=== PATIENT | male | born 1960 | race Caucasian/White ===

== ENCOUNTER 2020-09-18 15:46 | Inpatient (IN) ==
--- NOTE | 2020-09-18 16:11 | Emergency Department Note ---
History of Present Illness General Chief complaint: Facial Injury/Pain Stated complaint: LUMP ON FACE Time Seen by Provider: 09/18/20 16:00 History of Present Illness Maximum Pain Intensity: 6 This is a 60-year-old male that presents to the emergency department via private vehicle with complaints "lump on face". The patient notes that about 1 month ago he felt small pimples develop in the left nostril region. He put some drawing salve on these and they seem to go away. He then felt as though these small pimples seemed to progress to the hair follicles within his left upper mustache region and that seemed to worsen. He was seen several times for this thus far and placed on antibiotics. He was placed on Keflex and Bactrim this past Friday. He notes that an I&D was attempted at [place] emergency department and he notes that it continues to grow in size and drain this yel lowish type drainage. He denies any fevers or chills. He notes it is quite painful and currently rates the pain is a 6/10 of which she has mitigated with 800 mg ibuprofen, and has had 3 of these today. He denies any chewing tobacco history or smoking. He has never had this before. Home Medications Home Medications Medication Instructions Recorded Confirmed Type Bactrim DS 1 tab PO BID 09/18/20 09/18/20 History aspirin [Aspir-81] 81 mg PO DAILY 09/18/20 09/18/20 History cephalexin [Keflex] 500 mg PO QID 09/18/20 09/18/20 History lactobacillus combination no.4 3,000 mmu cells PO DAILY 09/18/20 09/18/20 History [Probiotic] Allergies Allergy/AdvReac Type Severity Reaction Status Date / Time atorvastatin [From Lipitor] AdvReac Unknown Verified 09/18/20 20:56 Past Med/Surg History Medical History No pertinent past medical history Surgical History History of carpal tunnel surgery Social History Smoking Status: Former smoker Second Hand Exposure: No; Do You Dip or Chew Tobacco: No; Hx Alcohol Use: No Hx Substance Use: No Preferred Language: German Communication Ability: Effective 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 Beliefs That Will Affect Care: None Current Living Situation: Spouse Other Information That Helps Us Care for You: No Feels Safe at Home: Yes Safety Concerns: Feels Safe At This Time Assistive Devices: None Review of Systems A total of 10 systems reviewed and were otherwise negative Physical Exam Vital Signs Vital Signs - 24 hr 09/18/20 15:56 09/18/20 17:58 09/18/20 19:00 Temperature 36.9 C Temperature Source Oral Pulse Rate 80 Pulse Rate [Right Finger] 75 66 Pulse Rhythm Regular Pulse Rhythm [Right Finger] Regular Pulse Strength Normal Pulse Strength [Right Finger] Normal Respiratory Rate 20 18 20 Respiratory Effort / Characteristics Non-Labored Non-Labored Spontaneous Non-Labored Spontaneous Respiratory Depth Normal Normal Normal Respiratory Pattern Regular Regular Blood Pressure 131/91 Blood Pressure [Right Arm] 140/81 116/65 Blood Pressure Mean 104 Blood Pressure Mean [Right Arm] 100 82 Pulse Oximetry 98 98 96 Oxygen Delivery Method Room Air Room Air Room Air Sepsis Recent Fever Within 48 Hours No Sepsis New/Unexplained Change in Mental Status No Sepsis Action Taken by Nursing No Action Required 09/18/20 20:50 Temperature Temperature Source Pulse Rate Pulse Rate [Right Finger] 67 Pulse Rhythm Pulse Rhythm [Right Finger] Pulse Strength Pulse Strength [Right Finger] Respiratory Rate 18 Respiratory Effort / Characteristics Respiratory Depth Respiratory Pattern Blood Pressure Blood Pressure [Right Arm] 122/70 Blood Pressure Mean Blood Pressure Mean [Right Arm] 87 Pulse Oximetry 98 Oxygen Delivery Method Sepsis Recent Fever Within 48 Hours Sepsis New/Unexplained Change in Mental Status Sepsis Action Taken by Nursing VITAL SIGNS - Vital signs and nursing notes were reviewed. Stable and afebrile. GENERAL -60-year-old male appearing his stated age who is in no acute distress. Communicates well with provider and answers questions appropriately. SKIN -there is a large, 3 cm in diameter, 3 cm protruding sphere in nature masslike structure projecting from the upper lip, left side between the left nostril and the left upper lip. This is within the patient's facial hair on the mustache. There is mild yellowish drainage. There is tenderness to palpation. HEAD - NC/AT. EYES - PERRL with EOMI bilaterally. Sclera anicteric. Palpebral conjunctiva pink and moist with no injection noted. EARS - No deformities of external structures noted on gross examination bilaterally. No pain elicited with palpation of the tragus bilaterally. External auditory canals without discharge or otorrhea. Tympanic membranes pearly elizabeth without retraction or bulging. No fluid or purulent material visualized behind the TM. Handle of malleus, umbo, cone of light, pars tensa/flaccid all easily visualized. NOSE - Midline and without cyanosis. No epistaxis or purulent drainage noted. Septum midline without deviation or septal hematoma noted. Skin as above. MOUTH/OROPHARYNX - Without perioral cyanosis. Buccal mucosa pink and moist and without leukoplakia. Tongue midline with equal elevation of palate bilaterally. No tonsillar hypertrophy, erythema, or exudates noted. Good dentition noted. NECK - Neck with FROM. Supple to palpation. Mild left-sided lymphadenopathy noted. No nuchal rigidity. LUNGS - Chest wall symmetric without accessory muscle use, intercostals retractions, or central cyanosis. Normal vesicular breath sounds CTA B/L. No wheezes, rales, or rhonchi appreciated. CARDIAC - RRR with S1/S2. No murmur, rubs, or gallops appreciated. EXTREMITIES - +5/5 strength noted in UE/LE bilaterally. NEUROLOGIC - Cranial nerves II through XII grossly intact. PSYCH - A&O, and cooperates fully with examiner. Pt is very pleasant and interacts well with examiner. Course Administered Medications Dextrose/Lactated Ringer's (D5w And Lactated Ringers) 1,000 mls @ 50 mls/hr IV .Q20H MAGED Stop: 10/19/20 00:00 Last Admin: 09/18/20 23:52 Dose: 50 mls/hr Documented by: [id number] Daptomycin 250 mg/ Syringe 5 mls @ 2.5 mls/min IV Q24H MAGED; Protocol Stop: 09/25/20 22:59 Last Admin: 09/18/20 23:52 Dose: 2.5 mls/min Documented by: [id number] Lactobacillus Acidophilus (Lactobacillus Acidophilus 1 Gm Pack) 1 gm PO TIDM MAGED Stop: 10/18/20 20:59 Last Admin: 09/18/20 22:31 Dose: 1 gm Documented by: [id number] Discontinued Medications Acetaminophen (Acetaminophen 500 Mg Tab) 1,000 mg PO NOW STA Stop: 09/18/20 21:09 Last Admin: 09/18/20 21:23 Dose: 1,000 mg Documented by: [id number] Vancomycin HCl 1,500 mg/ (Sodium Chloride) 530 mls @ 200 mls/hr IV NOW ONE Stop: 09/18/20 22:42 Last Infusion: 09/18/20 23:51 Dose: 0 mls/hr Documented by: [id number] Admin: 09/18/20 20:49 Dose: 200 mls/hr Documented by: [id number] Ciprofloxacin (Cipro / D5w) 400 mg in 200 mls @ 100 mls/hr IV NOW STA; Protocol Stop: 09/18/20 22:59 Last Admin: 09/18/20 23:52 Dose: 100 mls/hr Documented by: [id number] Ioversol (Optiray 320 125ml) 93 ml IV ONCE ONE Stop: 09/18/20 17:44 Last Admin: 09/18/20 17:44 Dose: 1 ml Documented by: [id number] Medical Decision Making Laboratory Data Result diagrams: 09/18/20 16:19 09/18/20 16:19 Lab Results 09/18/20 09/18/20 Range/Units 16:19 16:19 WBC 9.91 (4.8-10.8) K/uL RBC 5.23 (4.7-6.1) M/uL Hgb 15.2 (14.0-18.0) g/dL Hct 43.2 (42-52) % MCV 82.6 (80-100) fL MCH 29.1 (25-34) pg MCHC 35.2 (32-36) g/dL Plt Count 211 (130-400) K/uL Immature Gran % (Auto) 0.2 % Neut % (Auto) 62.0 % Lymph % (Auto) 20.3 % [place] % (Auto) 14.3 % Eos % (Auto) 2.8 % Baso % (Auto) 0.4 % Neut # (Auto) 6.14 (1.4-6.5) K/uL Lymph # (Auto) 2.01 (1.2-3.4) K/uL [place] # (Auto) 1.42 H (0.11-0.59) K/uL Eos # (Auto) 0.28 (0-0.5) K/uL Baso # (Auto) 0.04 (0-0.2) K/uL Immature Gran # (Auto) 0.02 (0.00-0.02) K/uL Sodium 137 (136-145) mmol/L Potassium 4.2 (3.5-5.1) mmol/L Chloride 107 (98-107) mmol/L Carbon Dioxide 24 (21-32) mmol/L Anion Gap 6.0 (3-11) BUN 21 H (7-18) mg/dl Creatinine 1.36 (0.6-1.4) mg/dl Est Cr Clr Drug Dosing Not Reportable Est GFR ( Amer) 65.1 Est GFR (Non-Af Amer) 56.2 BUN/Creatinine Ratio 15.3 (10-20) Glucose 85 (70-99) mg/dl Calcium 9.2 (8.5-10.1) mg/dl Total Bilirubin 1.0 (0.2-1) mg/dl AST 18 (15-37) U/L ALT 27 (12-78) U/L Alkaline Phosphatase 113 (45-117) U/L Total Protein 7.9 (6.4-8.2) gm/dl Albumin 3.9 (3.4-5.0) gm/dl Globulin 4.0 (2.5-4.0) gm/dl Albumin/Globulin Ratio 1.0 (0.9-2) Imaging Data Radiologist's Impression: CT SCAN OF THE FACIAL BONES WITH IV CONTRAST CLINICAL HISTORY: Upper lip swelling. Pain. COMPARISON STUDY: No priors. TECHNIQUE: High-resolution CT scan of the facial bones is performed following the IV administration of 94 cc of Optiray 320. Images are reviewed in the axial, sagittal, and coronal planes. IV contrast was administered without complication. A dose lowering technique was utilized adhering to the principles of ALARA. CT DOSE: 233.09 mGy.cm FINDINGS: The skeletal structures are well mineralized. There is no evidence of facial bone fracture. The bony orbits are intact and the orbital contents are within normal limits. The zygomatic arches, nasal bones, and pterygoid plates are preserved. The maxilla and mandible are intact. There are no layering blood products within the paranasal sinuses. Trace mucosal thickening is seen in the left maxillary antrum, the right frontal sinus, and the left sphenoid sinus. Mild to moderate mucosal thickening seen within the ethmoid, right sphenoid, and left frontal sinuses. The mastoid air cells are well pneumatized. The visualized calvarium and upper cervical spine are maintained. Partially imaged brain parenchyma is within normal limits. Evaluation of the oral cavity is degraded by streak artifact from dental amalgam. No significant periodontal disease is identified. There is significant soft tissue edema, hyperemia, and phlegmonous change are identified in the left upper lip. No organized fluid collection is clearly seen to indicate abscess. IMPRESSION: 1. Soft tissue edema, hyperemia, and phlegmonous change are identified in the soft tissues of the left upper lip. Correlate clinically for evidence of infection. 2. No organized/drainable fluid collection is identified to indicate abscess. This is suboptimally assessed due to significant streak artifact from dental amalgam. 3. No facial bone abnormality is seen. ACT 112: Negative or not required by law. Electronically signed by: Wan Tapia M.D. 09/18/2020 5:59 PM MDM Narrative Patient was seen and evaluated as above in room A10. Review was performed of nursing notes and vital signs. After obtaining a thorough history and physical examination the above work up was performed. Patient presents to us today with edema to the left upper lip region between the upper lip and nose. This is just to the left lateral region of the philtrum. Vital signs stable. He is afebrile. The swelling is quite impressive. Options of care were discussed with the patient. Was felt that a CT scan of the face with contrast would be reasonable to rule out a deeper abscess not seen clinically. There is no leukocytosis or anemia. No emergent metabolic disturbance. Patient has been on antibiotics for about a week now and they were changed to Keflex/Bactrim as of this past Friday. He has been taking them as prescribed. He notes worsening s ymptoms since that time. CT scan of the face as above. No abscess. There is drainage on my examination. I did obtain a sample from this drainage to culture. I did order empiric IV vancomycin. I did discuss the presentation with the on-call plastic surgeon, Dr. Hill. We discussed the case. With the patient not improving with p.o./oral outpatient antibiotics we discussed options of care. We discussed inpatient versus outpatient management. We agree at this time there does not appear to be any surgical emergent process. We discussed importance of antibiotics covering potential MRSA given presentation. Patient clinically looks well but does appear to be in pain and was medicated with analgesics and I discussed options with the patient and he notes that he is amenable to inpatient management which I believe is reasonable. The patient did add to the history that around the same time as developing the small pimples he did feel a small piece of hot metal fly towards the left nostril region while welding. This could have been the inciting event. I am not able to appreciate any foreign body on my examination. I do believe though with the patient not improving and arguably worsening in the outpatient setting despite p.o. antibiotics, that further evaluation and management in the inpatient setting is warranted. I believe by choosing the route of inpatient management tonight this could save the patient from potentially worsening infection given its location on the face believe this is in the patient's best interest to stay. I discussed presentation and findings with the on-call hospitalist, Dr. Bales. He came to evaluate the patient. Please refer to further documentation regarding his stay. GCS: 15 In the evaluation and treatment of this patient the following differential diagnoses were entertained: Cellulitis, abscess, malignancy, Nelson's angina, foreign body, among others. Impression & Plan Cellulitis of face, Swelling of upper lip, Failure of outpatient treatment Discharge Plan Visit Data Chief Complaint: Facial Injury/Pain Stated Complaint: LUMP ON FACE ED Provider: Nguyen Gregory ED Midlevel Provider: Guido Salcedo Discharge Problem: Cellulitis of face, Swelling of upper lip, Failure of outpatient treatment Patient Disposition: Admitted As Inpatient Discharge Instructions Interventions: ED Discharge Assessment Last Done: 09/18/20 21:30
[2020-09-18 16:54] LABS: Chloride 107 mmol/L (98-107); Potassium 4.2 mmol/L (3.5-5.1); Sodium 137 mmol/L (136-145)
[2020-09-18 17:25] LABS: Basophils # (auto) 0.04 K/uL (0-0.2); Basophils % (auto) 0.4 %; Eosinophils # (auto) 0.28 K/uL (0-0.5); Eosinophils % (auto) 2.8 %; Hematocrit (blood only) 43.2 % (42-52); Hemoglobin 15.2 g/dL (14.0-18.0); Immature Granulocytes # (auto) 0.02 K/uL (0.00-0.02); Immature Granulocytes % (auto) 0.2 %; Lymphocytes # (auto) 2.01 K/uL (1.2-3.4); Lymphocytes % (auto) 20.3 %; Mean Corpuscular Hemoglobin 29.1 pg (25-34); Mean Corpuscular Hgb Conc 35.2 g/dL (32-36); Mean Corpuscular Volume 82.6 fL (80-100); Monocytes # (auto) 1.42 K/uL (0.11-0.59); Monocytes % (auto) 14.3 %; Neutrophils # (auto) 6.14 K/uL (1.4-6.5); Platelet Count 211 K/uL (130-400); Red Blood Count 5.23 M/uL (4.7-6.1); White Blood Count 9.91 K/uL (4.8-10.8)
[2020-09-18 17:40] LABS: Albumin Level 3.9 gm/dl (3.4-5.0); Alkaline Phosphatase 113 U/L (45-117); BUN Creatinine Ratio 15.3 (10-20); Blood Urea Nitrogen 21 mg/dl (7-18); Calcium 9.2 mg/dl (8.5-10.1); Carbon Dioxide 24 mmol/L (21-32); Est GFR (African American) 65.1; Est GFR (Non-African American) 56.2; Glucose 85 mg/dl (70-99)
[2020-09-18 17:43] LABS: Alanine Aminotransferase 27 U/L (12-78); Aspartate Aminotransferase 18 U/L (15-37); Total Protein 7.9 gm/dl (6.4-8.2)
[2020-09-18] MEDS ORDERED: OPTIRAY 320 125ml IV ONE (17:43)
--- NOTE | 2020-09-18 18:01 | CT Scan Report ---
CT SCAN OF THE FACIAL BONES WITH IV CONTRAST CLINICAL HISTORY: Upper lip swelling. Pain. COMPARISON STUDY: No priors. TECHNIQUE: High-resolution CT scan of the facial bones is performed following the IV administration of 94 cc of Optiray 320. Images are reviewed in the axial, sagittal, and coronal planes. IV contrast was administered without complication. A dose lowering technique was utilized adhering to the princi ples of ALA. CT DOSE: 233.09 mGy.cm FINDINGS: The skeletal structures are well mineralized. There is no evidence of facial bone fracture. The bony orbits are intact and the orbital contents are within normal limits. The zygomatic arches, nasal bones, and pterygoid plates are preserved. The maxilla and mandible are intact. There are no la yering blood products within the paranasal sinuses. Trace mucosal thickening is seen in the left maxi llary antrum, the right frontal sinus, and the left sphenoid sinus. Mild to moderate mucosal thickeni ng seen within the ethmoid, right sphenoid, and left frontal sinuses. The mastoid air cells are well pneumatized. The visualized calvarium and upper cervical spine are maintained. Partially imaged brain parenchyma is within normal limits. Evaluation of the oral cavity is degraded by streak artifact fro m dental amalgam. No significant periodontal disease is identified. There is significant soft tissue edema, hyperemia, and phlegmonous change are identified in the left upper lip. No organized fluid col lection is clearly seen to indicate abscess. IMPRESSION: 1. Soft tissue edema, hyperemia, and phlegmonous change are identified in the soft tissues of the lef t upper lip. Correlate clinically for evidence of infection. 2. No organized/drainable fluid collection is identified to indicate abscess. This is suboptimally as sessed due to significant streak artifact from dental amalgam. 3. No facial bone abnormality is seen. ACT 112: Negative or not required by law. Electronically signed by: Wan Tapia M.D. 09/18/2020 5:59 PM
[2020-09-18] MEDS ORDERED: VANCOMYCIN CONSULT ACTIVE PRN (20:04)
[2020-09-18] MEDS ORDERED: VANCOMYCIN HCL 1,500 MG in SODIUM CHLORIDE 0.9% 500 ML IV ONE (20:04)
--- NOTE | 2020-09-18 20:54 | History & Physical Report ---
Date of Service September 18, 2020 Assessment & Plan (1) Facial abscess: Status post incision and drainage at [facility] ER last week. Failed outpatient treatment No sepsis hyperlipidemia/statin intolerance past tobacco abuse GMF Daptomycin, Ciprofloxacin Plastic surgery consultation Re: Left nasolabial abscess/cellulitis (ER provider already in touch with Dr. Hill.) We will keep patient n.p.o. after midnight in anticipation of procedural intervention following plastic surgery evaluation. DVT prophylaxis with Lovenox subcu Full code Text document was generated using [employer] voice recognition software. It may contain grammatical or spelling errors. Kindly contact undersigned for clarification of any documentation item in question. History of Present Illness Chief Complaint: Worsening facial swelling Primary Care Provider: Anam Fuentes MD History obtained from patient, family, and records. Medical history significant for hyperlipidemia, statin intolerance, Gilbert syndrome as per records, past tobacco abuse. 1 month history of swelling on the left nasolabial area. Started with an ulcerated wound after metallic fragments accidentally hit his face while using a blow torch to get metal hinges of a door at patient's home. Patient admits to picking on wound scabs which led to development of a bump on the left upper lip. Intermittent purulent yellow drainage noted without fever, chills, headache. Patient seen at [facility] ER last week. No metallic foreign body on x-ray. Left nasolabial abscess/folliculitis drained at the ER. Tdap booster given at the ER. Patient prescribed Clindamycin course. Some improvement following ER visit as per patient. Clindamycin switched to Keflex and Bactrim Rx by PCPs office on follow-up visit after 3 days. Subsequent worsening of left nasal labial swelling in the last few days. Patient directed to [facility] ER by PCPs office. IV vancomycin given at the emergency room. Medical History as above Surgical History : Vasectomy, carpal tunnel surgery Family History : Rheumatic heart disease, prostate cancer, malignant melanoma, heart disease Personal/Social history : Past tobacco abuse, no EtOH intake, [employer] Allergies Allergy/AdvReac Type Severity Reaction Status Date / Time atorvastatin [From Lipitor] AdvReac Unknown Verified 09/18/20 20:56 Home Medications Home Medications Medication Instructions Recorded Confirmed Type Bactrim DS 1 tab PO BID 09/18/20 09/18/20 History aspirin [Aspir-81] 81 mg PO DAILY 09/18/20 09/18/20 History cephalexin [Keflex] 500 mg PO QID 09/18/20 09/18/20 History lactobacillus combination no.4 3,000 mmu cells PO DAILY 09/18/20 09/18/20 Histor y [Probiotic] Past Med/Surg History Medical History No pertinent past medical history Surgical History History of carpal tunnel surgery Social History Smoking Status: Former smoker Second Hand Exposure: No; Do You Dip or Chew Tobacco: No; Hx Alcohol Use: No Hx Substance Use: No Preferred Language: Pashto Communication Ability: Effective Vaccine Key Customer Leader Required: No Beliefs That Will Affect Care: None Current Living Situation: Spouse Other Information That Helps Us Care for You: No Feels Safe at Home: Yes Safety Concerns: Feels Safe At This Time Assistive Devices: None Review of Systems Review of Systems: As per HPI, all 10 systems reviewed, all other ROS negative Physical Exam Physical Exam: GENERAL: Comfortable, pleasant, obese, no respiratory distress SKIN: Normal color, warm HEENT: Alopecia, crusty mass over left nasolabial fold with mild tenderness, pink palpebral conjunctivae, no ptosis, dry buccal mucosa NECK : Supple, no tenderness CHEST : CTA, no tenderness HEART : RRR, no obvious murmurs ABDOMEN: Some distention, nontender EXTREMITIES : No LE swelling/tenderness, no other conspicuous deformities noted NEUROLOGIC : Coherent, no facial asymmetry, no other gross focality Results & Data Results & Data ([facility]) Vital Signs (Past 12 Hours) Vital Signs Temp Pulse Pulse Resp BP BP Pulse Ox 09/18/20 20:50 67 18 122/70 98 09/18/20 19:00 66 20 116/65 96 09/18/20 17:58 75 18 140/81 98 09/18/20 15:56 36.9 C 80 20 131/91 98 Laboratory Results Laboratory Results WBC 9.91 K/uL (4.8-10.8) 09/18/20 16:19 RBC 5.23 M/uL (4.7-6.1) 09/18/20 16:19 Hgb 15.2 g/dL (14.0-18.0) 09/18/20 16:19 Hct 43.2 % (42-52) 09/18/20 16:19 MCV 82.6 fL (80-100) 09/18/20 16:19 MCH 29.1 pg (25-34) 09/18/20 16:19 MCHC 35.2 g/dL (32-36) 09/18/20 16:19 Plt Count 211 K/uL (130-400) 09/18/20 16:19 Immature Gran % (Auto) 0.2 % 09/18/20 16:19 Neut % (Auto) 62.0 % 09/18/20 16:19 Lymph % (Auto) 20.3 % 09/18/20 16:19 [place] % (Auto) 14.3 % 09/18/20 16:19 Eos % (Auto) 2.8 % 09/18/20 16:19 Baso % (Auto) 0.4 % 09/18/20 16:19 Neut # (Auto) 6.14 K/uL (1.4-6.5) 09/18/20 16:19 Lymph # (Auto) 2.01 K/uL (1.2-3.4) 09/18/20 16:19 [place] # (Auto) 1.42 K/uL (0.11-0.59) H 09/18/20 16:19 Eos # (Auto) 0.28 K/uL (0-0.5) 09/18/20 16:19 Baso # (Auto) 0.04 K/uL (0-0.2) 09/18/20 16:19 Immature Gran # (Auto) 0.02 K/uL (0.00-0.02) 09/18/20 16:19 Sodium 137 mmol/L (136-145) 09/18/20 16:19 Potassium 4.2 mmol/L (3.5-5.1) 09/18/20 16:19 Chloride 107 mmol/L (98-107) 09/18/20 16:19 Carbon Dioxide 24 mmol/L (21-32) 09/18/20 16:19 Anion Gap 6.0 (3-11) 09/18/20 16:19 BUN 21 mg/dl (7-18) H 09/18/20 16:19 Creatinine 1.36 mg/dl (0.6-1.4) 09/18/20 16:19 Est Cr Clr Drug Dosing Not Reportable 09/18/20 16:19 Est GFR ( Amer) 65.1 09/18/20 16:19 Est GFR (Non-Af Amer) 56.2 09/18/20 16:19 BUN/Creatinine Ratio 15.3 (10-20) 09/18/20 16:19 Glucose 85 mg/dl (70-99) 09/18/20 16:19 Calcium 9.2 mg/dl (8.5-10.1) 09/18/20 16:19 Total Bilirubin 1.0 mg/dl (0.2-1) 09/18/20 16:19 AST 18 U/L (15-37) 09/18/20 16:19 ALT 27 U/L (12-78) 09/18/20 16:19 Alkaline Phosphatase 113 U/L (45-117) 09/18/20 16:19 Total Protein 7.9 gm/dl (6.4-8.2) 09/18/20 16:19 Albumin 3.9 gm/dl (3.4-5.0) 09/18/20 16:19 Globulin 4.0 gm/dl (2.5-4.0) 09/18/20 16:19 Albumin/Globulin Ratio 1.0 (0.9-2) 09/18/20 16:[address]: 1. Soft tissue edema, hyperemia, and phlegmonous change are identified in the soft tissues of the left upper lip. Correlate clinically for evidence of infection. 2. No organized/drainable fluid collection is identified to indicate abscess. This is suboptimally assessed due to significant streak artifact from dental amalgam. 3. No facial bone abnormality is seen.
[2020-09-18] MEDS ORDERED: CIPROFLOXACIN / D5W 200 MG/100 ML BAG IV STA (20:59)
[2020-09-18] MEDS ORDERED: CIPROFLOXACIN / D5W 400 MG/200 ML BAG IV STA (21:00)
[2020-09-18] MEDS ORDERED: ACETAMINOPHEN 500 MG TAB PO STA (21:08)
[2020-09-18] MEDS ORDERED: LORazepam 0.5 MG/1 ML VIAL IV PRN (21:46)
[2020-09-18] MEDS ORDERED: IBUPROFEN 200 MG TAB PO PRN (21:46)
[2020-09-18] MEDS ORDERED: ACETAMINOPHEN 325 MG TAB PO PRN ×2 (21:46)
[2020-09-18] MEDS ORDERED: PROMETHAZINE HCL 12.5 MG in SODIUM CHLORIDE 0.9% 50 ML IV PRN (21:46)
[2020-09-18] MEDS ORDERED: PATIENT'S HEIGHT AND/OR WEIGHT NEEDED SCH (22:00)
[2020-09-18] MEDS ORDERED: CIPROFLOXACIN CONSULT ACTIVE PRN (22:13)
[2020-09-18] MEDS: LACTOBACILLUS ACIDOPHILUS 1 GM PACK PO SCH (22:31)
[2020-09-18] MEDS: D5W AND LACTATED RINGERS 1,000 ML IV SCH (23:52)
[2020-09-18] MEDS: DAPTOmycin 250 MG in SYRINGE 0 ML IV SCH (23:52)
[2020-09-19] MEDS: LACTOBACILLUS ACIDOPHILUS 1 GM PACK PO SCH ×3 (07:30→18:03)
[2020-09-19 07:59] LABS: Basophils # (auto) 0.05 K/uL (0-0.2); Basophils % (auto) 0.6 %; Eosinophils # (auto) 0.34 K/uL (0-0.5); Eosinophils % (auto) 3.8 %; Hematocrit (blood only) 42.3 % (42-52); Hemoglobin 14.6 g/dL (14.0-18.0); Immature Granulocytes # (auto) 0.02 K/uL (0.00-0.02); Immature Granulocytes % (auto) 0.2 %; Lymphocytes # (auto) 1.78 K/uL (1.2-3.4); Lymphocytes % (auto) 19.7 %; Mean Corpuscular Hemoglobin 29.1 pg (25-34); Mean Corpuscular Hgb Conc 34.5 g/dL (32-36); Mean Corpuscular Volume 84.4 fL (80-100); Mean Platelet Volume 11.3 fL (7.4-10.4); Monocytes # (auto) 1.15 K/uL (0.11-0.59); Monocytes % (auto) 12.7 %; Neutrophils # (auto) 5.71 K/uL (1.4-6.5); Platelet Count 198 K/uL (130-400); RDW Coefficient of Variation 12.7 % (11.5-14.5); Red Blood Count 5.01 M/uL (4.7-6.1); White Blood Count 9.05 K/uL (4.8-10.8)
[2020-09-19 08:31] LABS: BUN Creatinine Ratio 12.3 (10-20); Calcium 8.9 mg/dl (8.5-10.1); Creatinine Clr Calc Pharmacy 58.5 ml/min; Est GFR (Non-African American) 60.4; Potassium 4.3 mmol/L (3.5-5.1)
[2020-09-19] MEDS: ENOXAPARIN INJ 40 MG/0.4 ML SYR SQ SCH (08:40)
[2020-09-19] MEDS: CIPROFLOXACIN / D5W 400 MG/200 ML BAG IV SCH ×2 (08:40→21:00)
[2020-09-19] MEDS ORDERED: CONSULT PHARMACY SCH (09:00)
--- NOTE | 2020-09-19 14:21 | Surgery Consultation ---
Date of Consultation September 19, 2020 Assessment & Plan (1) Facial abscess: (2) Swelling of upper lip: (3) Cellulitis of face: IV abx per primary team. Needle aspiration performed at bedside- small amount of bloody drainage obtained. Wound culture was obtained. Gauze dressing was applied. Would recommend biopsy of mass. Plan for biopsy at bedside tomorrow with Dr. Hill. Plastic surgery will continue to follow closely. . History of Present Illness Reason for Consultation: Facial swelling Attending Physician: Modesto Parr MD History of Present Illness Jose L is a 60-year-old male who presented to [facility] ED for evaluation of lump above upper lip. He reports that this lump has been there for the last 2 weeks. He states that he was evaluated last week at [facility] where they attempted an incision and drainage. He states that he was discharged home on Keflex and Bactrim. He reports that the antibiotics did not help, in fact, the swelling became larger and more painful. He has been trying drawing salve to help with no success. He does note that about a month ago he had several small pimples near his left nostril, which is in the same vicinity of his current facial swelling. He states that he was treated with antibiotics, which seemed to help temporarily. He reports that today, the swelling is much bigger and it has started to drain. Allergies Allergy/AdvReac Type Severity Reaction Status Date / Time atorvastatin [From Lipitor] AdvReac Unknown Verified 09/18/20 20:56 Home Medications Home Medications Medication Instructions Recorded Confirmed Type Bactrim DS 1 tab PO BID 09/18/20 09/18/20 History aspirin [Aspir-81] 81 mg PO DAILY 09/18/20 09/18/20 History cephalexin [Keflex] 500 mg PO QID 09/18/20 09/18/20 History lactobacillus combination no.4 3,000 mmu cells PO DAILY 09/18/20 09/18/20 History [Probiotic] Patient History Medical History No pertinent past medical history Surgical History History of carpal tunnel surgery Social History Smoking Status: Former smoker Second Hand Exposure: No; Do You Dip or Chew Tobacco: No; Hx Alcohol Use: No Hx Substance Use: No Preferred Language: Greek Communication Ability: Effective Customs Manager Required: No Beliefs That Will Affect Care: None Current Living Situation: Spouse Other Information That Helps Us Care for You: No Feels Safe at Home: Yes Safety Concerns: Feels Safe At This Time Assistive Devices: None Physical Exam Physical Exam: there is a large, 4 cm x 3.5 cm x 1cm lesion protruding from the upper lip, left side between the left nostril and the left upper lip. This is within the patient's facial hair on the mustache. There is mild yellowish drainage. Lesion is friable. Patient is exquisitely tender. Results & Data ([facility]) Vital Signs (Past 12 Hours) Vital Signs Temp Pulse Resp BP Pulse Ox 09/19/20 08:21 37.3 C 56 L 18 114/74 97 PG Care Time/CCT Total # of Minutes Spent Total Time Spent with Patient: Total time spent is greater than 50% in coordination of care (as documented) at patient's floor/unit and/or counseling patient: Coding Level of Care Code 36129 Inpt Consult Level 2 Diagnoses Facial abscess L02.01 Swelling of upper lip R22.0 Cellulitis of face L03.211
[2020-09-19] MEDS: KETOROLAC TROMETHAMINE 15 MG/ML VIAL IV PRN ×2 (15:29→21:01)
--- NOTE | 2020-09-19 19:41 | Hospitalist Progress Note ---
Date of Service September 19, 2020 Assessment & Plan (1) Facial abscess: Status post incision and drainage at [facility] ER last week. Failed outpatient treatment No sepsis Plastic surgery consultation, Dr. Hill, Re: Left nasolabial abscess/cellulitis/ mass S/p needle aspiration today (09/19/20) Cultures obtained Plan for biopsy of the mass by plastic surg. tomorrow (09/20/20) Cont. Daptomycin, Ciprofloxacin Hyperlipidemia/statin intolerance Past tobacco abuse DVT prophylaxis with Lovenox subcu Full code Admission and Anticipated Discharge Date Admission Date: September 18, 2020 Subjective Patient is lying in bed, in no acute distress. Denies any fevers chills, chest pain, shortness of breath. Seen by plastic surgery, needle aspiration performed, plan for biopsy of the mass tomorrow. Review of Systems Review of Systems: All systems reviewed & are unremarkable except as noted in HPI & below Constitutional: no fever and no chills Respiratory: no cough and no dyspnea Cardiovascular: no chest pain and no palpitations Gastrointestinal: no abdominal pain, no nausea and no vomiting Physical Exam Physical Exam: GENERAL: WD/WN, obese male, in no respiratory distress HEENT: Alopecia, crusty mass over left nasolabial fold with mild tenderness, pink palpebral conjunctivae, no ptosis, dry buccal mucosa NECK : Supple, no tenderness CHEST : CTA, no tenderness HEART : RRR, no obvious murmurs ABDOMEN: Some distention, nontender, soft EXTREMITIES : No LE swelling/tenderness, moves extremities spontaneously SKIN: Normal color, warm NEUROLOGIC : alert and oriented x3, no facial asymmetry, moves extremities Results & Data Results & Data ([facility]) Vital Signs (Past 12 Hours) Vital Signs Temp Pulse Resp BP Pulse Ox 09/19/20 16:09 37.2 C 65 18 100/65 95 09/19/20 08:21 37.3 C 56 L 18 114/74 97 Laboratory Results 09/19/20 09/19/20 Range/Units 07:26 07:26 WBC 9.05 (4.8-10.8) K/uL RBC 5.01 (4.7-6.1) M/uL Hgb 14.6 (14.0-18.0) g/dL Hct 42.3 (42-52) % MCV 84.4 (80-100) fL MCH 29.1 (25-34) pg MCHC 34.5 (32-36) g/dL RDW Std Deviation 39.0 (36.4-46.3) fL RDW Coeff of Arely 12.7 (11.5-14.5) % Plt Count 198 (130-400) K/uL MPV 11.3 H (7.4-10.4) fL Immature Gran % (Auto) 0.2 % Neut % (Auto) 63.0 % Lymph % (Auto) 19.7 % [place] % (Auto) 12.7 % Eos % (Auto) 3.8 % Baso % (Auto) 0.6 % Neut # (Auto) 5.71 (1.4-6.5) K/uL Lymph # (Auto) 1.78 (1.2-3.4) K/uL [place] # (Auto) 1.15 H (0.11-0.59) K/uL Eos # (Auto) 0.34 (0-0.5) K/uL Baso # (Auto) 0.05 (0-0.2) K/uL Immature Gran # (Auto) 0.02 (0.00-0.02) K/uL Sodium 137 (136-145) mmol/L Potassium 4.3 (3.5-5.1) mmol/L Chloride 106 (98-107) mmol/L Carbon Dioxide 26 (21-32) mmol/L Anion Gap 5.0 (3-11) BUN 16 (7-18) mg/dl Creatinine 1.28 (0.6-1.4) mg/dl Est Cr Clr Drug Dosing 58.5 ml/min Est GFR ( Amer) 70.0 Est GFR (Non-Af Amer) 60.4 BUN/Creatinine Ratio 12.3 (10-20) Glucose 93 (70-99) mg/dl Calcium 8.9 (8.5-10.1) mg/dl Medications Administered Current Inpatient Medications Acetaminophen (Acetaminophen 325 Mg Tab) 650 mg PO Q4H PRN PRN Reason: pain/fever Stop: 10/18/20 21:45 Last Admin: 09/19/20 12:46 Dose: 650 mg Documented by: Enoxaparin Sodium (Enoxaparin Inj 40 Mg/0.4 Ml Syr) 40 mg SQ QAM [facility] Stop: 10/19/20 08:59 Last Admin: 09/19/20 08:40 Dose: 40 mg Documented by: Promethazine HCl 12.5 mg/ (Sodium Chloride) 50.5 mls @ 202 mls/hr IV Q6H PRN PRN Reason: Nausea And Vomiting Stop: 10/18/20 21:45 Dextrose/Lactated Ringer's (D5w And Lactated Ringers) 1,000 mls @ 50 mls/hr IV .Q20H [facility] Stop: 10/19/20 00:00 Last Admin: 09/18/20 23:52 Dose: 50 mls/hr Documented by: Lorazepam (Ativan) 0.5 mg in 1 mls @ 1 mls/min IV Q4H PRN PRN Reason: Anxiety/Agitation Stop: 10/18/20 21:45 Ciprofloxacin (Cipro / D5w) 400 mg in 200 mls @ 100 mls/hr IV Q12H [facility]; Protocol Stop: 09/26/20 09:59 Last Infusion: 09/19/20 10:41 Dose: Infused Documented by: Daptomycin 250 mg/ Syringe 5 mls @ 2.5 mls/min IV Q24H [facility]; Protocol Stop: 09/25/20 22:59 Last Admin: 09/18/20 23:52 Dose: 2.5 mls/min Documented by: Ibuprofen (Ibuprofen 200 Mg Tab) 200 mg PO Q6H PRN PRN Reason: Mild Pain Stop: 10/18/20 21:45 Ketorolac Tromethamine (Ketorolac Tromethamine 15 Mg/Ml Vial) 15 mg IV Q6H PRN PRN Reason: Pain Stop: 09/23/20 21:45 Last Admin: 09/19/20 15:29 Dose: 15 mg Documented by: Lactobacillus Acidophilus (Lactobacillus Acidophilus 1 Gm Pack) 1 gm PO TIDM [facility] Stop: 10/18/20 20:59 Last Admin: 09/19/20 18:03 Dose: 1 gm Documented by: Lidocaine/Epinephrine (Lido/Epinephrine/Sod Bicarb 20 Ml Vial) 20 ml INFIL TODAY@0730 [facility] Stop: 09/20/20 12:00 Miscellaneous Information (Ciprofloxacin Consult Active) 1 ea N/A UD PRN PRN Reason: Consult Stop: 10/18/20 22:12 Miscellaneous Information (Daptomycin Consult Active) 1 ea N/A UD PRN PRN Reason: Consult Stop: 10/18/20 22:14
[2020-09-19] MEDS: D5W AND LACTATED RINGERS 1,000 ML IV SCH (20:38)
[2020-09-19] MEDS: DAPTOmycin 250 MG in SYRINGE 0 ML IV SCH (22:13)
[2020-09-20 06:09] LABS: Hemoglobin 14.6 g/dL (14.0-18.0); Mean Corpuscular Hemoglobin 28.6 pg (25-34); Mean Corpuscular Volume 84.1 fL (80-100); Mean Platelet Volume 10.7 fL (7.4-10.4); Platelet Count 185 K/uL (130-400); RDW Coefficient of Variation 12.5 % (11.5-14.5); RDW Standard Deviation 38.2 fL (36.4-46.3); Red Blood Count 5.11 M/uL (4.7-6.1); White Blood Count 6.96 K/uL (4.8-10.8)
[2020-09-20 06:28] LABS: BUN Creatinine Ratio 13.7 (10-20); Calcium 9.1 mg/dl (8.5-10.1); Creatinine Clr Calc Pharmacy 48.9 ml/min; Est GFR (African American) 56.4; Est GFR (Non-African American) 48.7; Potassium 4.5 mmol/L (3.5-5.1)
[2020-09-20] MEDS: KETOROLAC TROMETHAMINE 15 MG/ML VIAL IV PRN ×2 (07:28→20:17)
[2020-09-20] MEDS ORDERED: LIDO/EPINEPHRINE/SOD BICARB 20 ML VIAL INFIL SCH (07:30)
[2020-09-20] MEDS: LACTOBACILLUS ACIDOPHILUS 1 GM PACK PO SCH ×3 (08:40→18:01)
[2020-09-20] MEDS: ENOXAPARIN INJ 40 MG/0.4 ML SYR SQ SCH (08:41)
[2020-09-20] MEDS: CIPROFLOXACIN / D5W 400 MG/200 ML BAG IV SCH ×2 (08:41→21:36)
--- NOTE | 2020-09-20 11:53 | Surgery Progress Note ---
Date of Service September 20, 2020 Assessment & Plan (1) Cellulitis of face: (2) Swelling of upper lip: (3) Facial abscess: Dr. Hill in to see and examine patient. Recommend punch biopsy at bedside today. Risks of biopsy, which include bleeding, infection, poor scarring reviewed with patient. Patient agreeable to proceed with biopsy. Punch biopsy x 3 completed at bedside today (please see procedure note below for additional information). Biopsies sent to pathology. Continue IV abx at this time until definitive diagnosis is obtained. Risks of procedure reviewed with patient. All questions answered. Area cleaned and prepped with betadine. Buffered Lidocaine 1% with Epinephrine (3 cc) injected. Area cleaned with betadine. 6mm punch biopsy obtained from (1.) left aspect of lesion, (2.) center of lesion and (3.) inferior portion of lesion. Hemostasis achieved. Gauze dressing applied. Specimen x 3 sent to pathology. Admission and Anticipated Discharge Date Admission Date: September 18, 2020 Supervising Physician Co-Signing Physician Notes Patient seen and examined at bedside. Reports some minimal improvement in left upper lip with antibiotics. On exam, there is a large crusted, draining mass of the cutaneous upper lip between the jolynn border and nasal sill. This is concerning for SCC; biopsy and tissue culture performed today by Malka while I was present. Will follow. If discharged prior to pathology being reported, please have patient follow up in my office. Destiny Domingo reports continued pain from upper lip lesion. He denies any other concerns at this time. Physical Exam Physical Exam: there is a large, 4 cm x 3.5 cm x 1cm lesion protruding from the upper lip, left side between the left nostril and the left upper lip. This is within the patient's facial hair on the mustache. There is mild yellowish drainage. Lesion is friable. Patient is exquisitely tender. Results & Data ([facility]) Vital Signs (Past 12 Hours) Vital Signs Temp Pulse Resp BP Pulse Ox 09/20/20 08:38 36.7 C 60 14 108/97 95 PG Care Time/CCT Total # of Minutes Spent Total Time Spent with Patient: Total time spent is greater than 50% in coordination of care (as documented) at patient's floor/unit and/or counseling patient: Coding Level of Care Code 88934 Subseq Hosp Care Lvl 2 Diagnoses Cellulitis of face L03.211 Swelling of upper lip R22.0 Facial abscess L02.01 CPT Codes Punch Biopsy of 1 Lesion - [id number] ([id number])
--- NOTE | 2020-09-20 16:55 | Hospitalist Progress Note ---
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 Failed outpatient treatment No sepsis Plastic surgery consultation, Dr. Hill, Re: Left nasolabial abscess/cellulitis/ mass S/p needle aspiration today (09/19/20) Cultures obtained Cont. Daptomycin, Ciprofloxacin Hyperlipidemia/statin intolerance Past tobacco abuse DVT prophylaxis with Lovenox subcu Full code Admission and Anticipated Discharge Date Admission Date: September 18, 2020 Subjective The patient was seen and examined in medical floor He is a status post punch biopsy of left nasolabial fold mass Denies any acute symptoms Review of Systems Review of Systems: All systems reviewed and are unremarkable except as noted below Physical Exam Physical Exam: Lying in bed comfortably Constitutional: well developed and well nourished; no acute distress Eyes: PERRL, conjunctivae normal, anicteric sclerae ENMT: Nose: + facial exam abnormality (Left nasolabial fold mass. No obstruction of the nares) Neck: trachea midline, no thyromegaly Respiratory: no respiratory distress Auscultation: lungs clear to auscultation bilaterally Cardiovascular: Rate/Rhythm: regular rate and regular rhythm Heart Sounds: no murmur Gastrointestinal (Abdomen): Inspection/Auscultation: abdomen not distended Percussion/Palpation: abdomen soft; abdomen nontender Musculoskeletal: No acute arthritis involving any joint Neurologic: patellar DTR's 2+ bilat, sensation intact Psychiatric: A+Ox3, euthymic affect Lymphatic: no cervical or axillary lymphadenopathy Results & Data Results & Data ([facility]) Vital Signs (Past 12 Hours) Vital Signs Temp Pulse Resp BP Pulse Ox 09/20/20 15:30 36.9 C 67 18 107/68 94 09/20/20 08:38 36.7 C 60 14 108/97 95 Laboratory Results Short CBC 09/20/20 Range/Units 05:54 WBC 6.96 (4.8-10.8) K/uL Hgb 14.6 (14.0-18.0) g/dL Hct 43.0 (42-52) % Plt Count 185 (130-400) K/uL [facility] 09/20/20 05:54 Sodium 137 Potassium 4.5 Chloride 106 Carbon Dioxide 27 BUN 21 H Creatinine 1.53 H Glucose 105 H Calcium 9.1 Medications Administered Current Inpatient Medications Acetaminophen (Acetaminophen 325 Mg Tab) 650 mg PO Q4H PRN PRN Reason: pain/fever Stop: 10/18/20 21:45 Last Admin: 09/19/20 12:46 Dose: 650 mg Documented by: Enoxaparin Sodium (Enoxaparin Inj 40 Mg/0.4 Ml Syr) 40 mg SQ QAM [facility] Stop: 10/19/20 08:59 Last Admin: 09/20/20 08:41 Dose: 40 mg Documented by: Promethazine HCl 12.5 mg/ (Sodium Chloride) 50.5 mls @ 202 mls/hr IV Q6H PRN PRN Reason: Nausea And Vomiting Stop: 10/18/20 21:45 Lorazepam (Ativan) 0.5 mg in 1 mls @ 1 mls/min IV Q4H PRN PRN Reason: Anxiety/Agitation Stop: 10/18/20 21:45 Ciprofloxacin (Cipro / D5w) 400 mg in 200 mls @ 100 mls/hr IV Q12H [facility]; Protocol Stop: 09/26/20 09:59 Last Infusion: 09/20/20 09:41 Dose: Infused Documented by: Daptomycin 250 mg/ Syringe 5 mls @ 2.5 mls/min IV Q24H [facility]; Protocol Stop: 09/25/20 22:59 Last Admin: 09/19/20 22:13 Dose: 2.5 mls/min Documented by: Ibuprofen (Ibuprofen 200 Mg Tab) 200 mg PO Q6H PRN PRN Reason: Mild Pain Stop: 10/18/20 21:45 Ketorolac Tromethamine (Ketorolac Tromethamine 15 Mg/Ml Vial) 15 mg IV Q6H PRN PRN Reason: Pain Stop: 09/23/20 21:45 Last Admin: 09/20/20 07:28 Dose: 15 mg Documented by: Lactobacillus Acidophilus (Lactobacillus Acidophilus 1 Gm Pack) 1 gm PO TIDM [facility] Stop: 10/18/20 20:59 Last Admin: 09/20/20 12:41 Dose: 1 gm Documented by: Miscellaneous Information (Ciprofloxacin Consult Active) 1 ea N/A UD PRN PRN Reason: Consult Stop: 10/18/20 22:12 Miscellaneous Information (Daptomycin Consult Active) 1 ea N/A UD PRN PRN Reason: Consult Stop: 10/18/20 22:14
[2020-09-21] MEDS: DAPTOmycin 250 MG in SYRINGE 0 ML IV SCH (00:19)
[2020-09-21 06:16] LABS: Hematocrit (blood only) 42.4 % (42-52); Hemoglobin 14.4 g/dL (14.0-18.0); Mean Corpuscular Hemoglobin 28.7 pg (25-34); Mean Corpuscular Volume 84.6 fL (80-100); Mean Platelet Volume 11.1 fL (7.4-10.4); Platelet Count 202 K/uL (130-400); RDW Coefficient of Variation 12.5 % (11.5-14.5); RDW Standard Deviation 38.9 fL (36.4-46.3); Red Blood Count 5.01 M/uL (4.7-6.1); White Blood Count 8.52 K/uL (4.8-10.8)
[2020-09-21 06:41] LABS: BUN Creatinine Ratio 16.5 (10-20); Calcium 8.5 mg/dl (8.5-10.1); Creatinine Clr Calc Pharmacy 55.1 ml/min; Est GFR (African American) 65.1; Est GFR (Non-African American) 56.2; Potassium 4.2 mmol/L (3.5-5.1)
[2020-09-21] MEDS: LACTOBACILLUS ACIDOPHILUS 1 GM PACK PO SCH ×2 (07:40→11:59)
[2020-09-21] MEDS: ENOXAPARIN INJ 40 MG/0.4 ML SYR SQ SCH (07:40)
[2020-09-21] MEDS: CIPROFLOXACIN / D5W 400 MG/200 ML BAG IV SCH (09:37)
--- NOTE | 2020-09-21 13:26 | Hospitalist Progress Note ---
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 Presented with a small strawberry-like lesion involving left nasolabial fold Clinically keratoacanthoma Status post biopsy and we will wait for the result Will be discharged this afternoon and will have an appointment as an outpatient with plastics surgeon on of this month (2) Facial abscess: Status post incision and drainage at [facility] ER last week. Failed outpatient treatment No sepsis Plastic surgery consultation, Dr. Hill, Re: Left nasolabial abscess/cellulitis/ mass S/p needle aspiration today (09/19/20) Cultures obtained Cont. Daptomycin, Ciprofloxacin Will discontinue current antibiotics and give him Augmentin 875 twice daily for 5 more days Continue probiotics Hyperlipidemia/statin intolerance Past tobacco abuse DVT prophylaxis with Lovenox subcu Full code Admission and Anticipated Discharge Date Admission Date: September 18, 2020 Subjective The patient was seen and examined in medical floor He is a status post punch biopsy of left nasolabial fold mass Denies any acute symptoms 09/21/2020 The patient was seen and examined in medical floor He has been feeling a lot better today and denies any symptoms Will be discharged home this afternoon Review of Systems Review of Systems: All systems reviewed and are unremarkable except as noted below Physical Exam Physical Exam: Lying in bed comfortably Constitutional: well developed and well nourished; no acute distress Eyes: PERRL, conjunctivae normal, anicteric sclerae ENMT: Nose: + facial exam abnormality (Left nasolabial fold mass. No obstruction of the nares) Neck: trachea midline, no thyromegaly Respiratory: no respiratory distress Auscultation: lungs clear to auscultation bilaterally Cardiovascular: Rate/Rhythm: regular rate and regular rhythm Heart Sounds: no murmur Gastrointestinal (Abdomen): Inspection/Auscultation: abdomen not distended Percussion/Palpation: abdomen soft; abdomen nontender Musculoskeletal: No acute arthritis in any joint Neurologic: patellar DTR's 2+ bilat, sensation intact Psychiatric: A+Ox3, euthymic affect Lymphatic: no cervical or axillary lymphadenopathy Results & Data Results & Data ([facility]) Vital Signs (Past 12 Hours) Vital Signs Temp Pulse Resp BP Pulse Ox 09/21/20 07:31 36.9 C 56 L 16 99/59 L 97 Laboratory Results Short CBC 09/21/20 Range/Units 05:42 WBC 8.52 (4.8-10.8) K/uL Hgb 14.4 (14.0-18.0) g/dL Hct 42.4 (42-52) % Plt Count 202 (130-400) K/uL [facility] 09/21/20 05:42 Sodium 139 Potassium 4.2 Chloride 110 H Carbon Dioxide 23 BUN 23 H Creatinine 1.36 Glucose 101 H Calcium 8.5 Medications Administered Current Inpatient Medications Acetaminophen (Acetaminophen 325 Mg Tab) 650 mg PO Q4H PRN PRN Reason: pain/fever Stop: 10/18/20 21:45 Last Admin: 09/19/20 12:46 Dose: 650 mg Documented by: Amoxicillin/Clavulanate Potassium (Amoxicillin/Clavulanate 875 Mg Tab) 1 tab PO BIDM [facility] Stop: 09/28/20 16:59 Enoxaparin Sodium (Enoxaparin Inj 40 Mg/0.4 Ml Syr) 40 mg SQ QAM [facility] Stop: 10/19/20 08:59 Last Admin: 09/21/20 07:40 Dose: 40 mg Documented by: Promethazine HCl 12.5 mg/ (Sodium Chloride) 50.5 mls @ 202 mls/hr IV Q6H PRN PRN Reason: Nausea And Vomiting Stop: 10/18/20 21:45 Lorazepam (Ativan) 0.5 mg in 1 mls @ 1 mls/min IV Q4H PRN PRN Reason: Anxiety/Agitation Stop: 10/18/20 21:45 Ibuprofen (Ibuprofen 200 Mg Tab) 200 mg PO Q6H PRN PRN Reason: Mild Pain Stop: 10/18/20 21:45 Ketorolac Tromethamine (Ketorolac Tromethamine 15 Mg/Ml Vial) 15 mg IV Q6H PRN PRN Reason: Pain Stop: 09/23/20 21:45 Last Admin: 09/20/20 20:17 Dose: 15 mg Documented by: Lactobacillus Acidophilus (Lactobacillus Acidophilus 1 Gm Pack) 1 gm PO TIDM [facility] Stop: 10/18/20 20:59 Last Admin: 11/12/20 11:59 Dose: 1 gm Documented by:
[2020-09-21] MEDS ORDERED: AMOXICILLIN/CLAVULANATE 875 MG TAB PO SCH (17:00)
--- NOTE | 2020-09-22 07:58 | Discharge Summary ---
Date of Service September 22, 2020 Admission HPI Per Admitting Provider History obtained from patient, family, and records. Medical history significant for hyperlipidemia, statin intolerance, Gilbert syndrome as per records, past tobacco abuse. 1 month history of swelling on the left nasolabial area. Started with an ulcerated wound after metallic fragments accidentally hit his face while using a blow torch to get metal hinges of a door at patient's home. Patient admits to picking on wound scabs which led to development of a bump on the left upper lip. Intermittent purulent yellow drainage noted without fever, chills, headache. Patient seen at [facility] ER last week. No metallic foreign body on x-ray. Left nasolabial abscess/folliculitis drained at the ER. Tdap booster given at the ER. Patient prescribed Clindamycin course. Some improvement following ER visit as per patient. Clindamycin switched to Keflex and Bactrim Rx by PCPs office on follow-up visit after 3 days. Subsequent worsening of left nasal labial swelling in the last few days. Patient directed to [facility] ER by PCPs office. IV vancomycin given at the emergency room. Medical History as above Surgical History : Vasectomy, carpal tunnel surgery Family History : Rheumatic heart disease, prostate cancer, malignant melanoma, heart disease Personal/Social history : Past tobacco abuse, no EtOH intake, [employer] Admission Exam Per Admitting Provider Physical Exam: GENERAL: Comfortable, pleasant, obese, no respiratory distress SKIN: Normal color, warm HEENT: Alopecia, crusty mass over left nasolabial fold with mild tenderness, pink palpebral conjunctivae, no ptosis, dry buccal mucosa NECK : Supple, no tenderness CHEST : CTA, no tenderness HEART : RRR, no obvious murmurs ABDOMEN: Some distention, nontender EXTREMITIES : No LE swelling/tenderness, no other conspicuous deformities noted NEUROLOGIC : Coherent, no facial asymmetry, no other gross focality Principal Diagnosis Possible keratoacanthoma involving the left nasolabial fold, facial cellulitis Discharge Exam Constitutional well developed and well nourished; no acute distress Eyes PERRL, conjunctivae normal, anicteric sclerae ENMT Nose: + facial exam abnormality (Left nasolabial fold mass. No obstruction of the nares) Neck trachea midline, no thyromegaly Respiratory no respiratory distress Auscultation: lungs clear to auscultation bilaterally Cardiovascular Rate/Rhythm: regular rate and regular rhythm Heart Sounds: no murmur Gastrointestinal (Abdomen) Inspection/Auscultation: abdomen not distended Percussion/Palpation: abdomen soft; abdomen nontender Neurologic patellar DTR's 2+ bilat, sensation intact Psychiatric A+Ox3, euthymic affect Lymphatic no cervical or axillary lymphadenopathy Discharge Data Allergies Allergy/AdvReac Type Severity Reaction Status Date / Time atorvastatin [From Lipitor] AdvReac Unknown Verified 09/18/20 20:56 Consultations 09/18/20 21:22 ED Decision to Admit Stat 09/18/20 22:00 Consult Plastic Surgery QSE Ordered Studies 09/18/20 16:08 CT facial bones w con Stat Hospital Course (1) 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 keratoacanthoma of the left nasolabial fold History of rest middle injury around that area about 1 month ago Has had possible cellulitis and is status post I&D at [facility] [address] Presented with a small strawberry-like lesion involving left nasolabial fold Clinically keratoacanthoma Status post biopsy and we will wait for the result Will be discharged this afternoon and will have an appointment as an outpatient with plastics surgeon on 16 of this month (2) Facial abscess: Status post incision and drainage at [facility] ER last week. Failed outpatient treatment No sepsis Plastic surgery consultation, Dr. Hill, Re: Left nasolabial abscess/cellulitis/ mass S/p needle aspiration today (09/19/20) Cultures obtained Cont. Daptomycin, Ciprofloxacin Will discontinue current antibiotics and give him Augmentin 875 twice daily for 5 more days Continue probiotics Hyperlipidemia/statin intolerance Past tobacco abuse DVT prophylaxis with Lovenox subcu Full code Total Time Total Time Spent Total Time Spent (In Minutes): 35 minutes Total Time Includes: Examination of the Patient, Discharge Planning, Medication Reconciliation and Communication With Other Providers Discharge Plan Discharge Items Patient Disposition: Home - Self-Care Reason For Visit: FACIAL CELLULITIS, FAILED OUTPX [place] Discharge Diagnosis: Possible keratoacanthoma involving the left nasolabial fold, facial cellulitis Condition on Discharge: Good Activity: Resume your previous activity Non-emergency contact: Primary Care Provider Call non-emergency contact if: you have any medication questions and your symptoms worsen Follow-up/Referrals: Lidia Hill MD [Physician] - 09/25/20 1:00 pm Anam Fuentes MD [Primary Care Provider] - (Date & Time 09/25/2020 10:40 AM Provider Anam Fuentes MD Department [facility] ) Diet: Regular Addtl Attending Provider Instructions: Please finish the course of antibiotic Keep appointment with your plastic surgeon Pending Studies at Discharge: Yes Studies:: Biopsy result Stand-Alone Forms: My [facility], Smoking Cessation Medications and DC Order Prescriptions: New amoxicillin-pot clavulanate [Augmentin] 875-125 mg Tablet 1 tab PO BIDM 5 Days Qty: 10 RF: 0 Continued aspirin 81 mg Tablet,Delayed Release (Dr/Ec) 81 mg PO DAILY RF: 0 Probiotic 3 billion cell Capsule 3,000 mmu cells PO DAILY RF: 0 Discontinued Bactrim DS 1 tab PO BID RF: 0 cephalexin [Keflex] 500 mg Capsule 500 mg PO QID RF: 0 Discharge Orders: Discharge Order (Routine); Ordered 09/21/20 Ordered By: Nieves Lewis/Other Patient Handouts: ED Abscess, Incision And Drainage Admission Data Admit Date/Time: 09/18/20 20:58 Attending Provider: Nieves Pittman Admit Provider: Mohsen Bales Primary Care Provider: Anam Fuentes I. Other Providers: Lidia Hill ; Mohsen Bales ; Modesto Parr Other Interventions: Discharge Summary Assessment (RN) Last Done: 09/21/20 14:27
== END 2020-09-21 15:20 | disposition home or self-care (01) | DRG 603 ==
LOC: ED 15:46 → SUATTDRO 20:58 → 3W 20:58